=== PATIENT | male | born 1970 | race Two or more races ===

== ENCOUNTER 2020-02-07 07:22 | Emergency (ER) | payer MEDICAID ==
[~2020-02-07] VITALS: Ht 175.3 cm; Wt 77.6 kg
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
[2020-02-07 07:50] LABS: BASOPHILS % (AUTO) 0.8 % (0.0-2.0); HEMATOCRIT 45 % (39-51); HEMOGLOBIN 15.2 g/dL (13.5-17.5); LYMPHOCYTES # (AUTO) 1.5 /CMM (0.8-4.8); MEAN CORPUSCULAR HGB CONC 34 g/dl (31.0-36.0); MEAN CORPUSCULAR VOLUME 93 fL (80-96); MONOCYTES # (AUTO) 0.5 /CMM (0.1-1.30); MONOCYTES % (AUTO) 9.3 % (2.0-12.0); NEUTROPHILS # (AUTO) 2.8 /CMM (1.8-8.9); NEUTROPHILS % (AUTO) 54.9 % (43.0-81.0); PLATELET COUNT (AUTO) 160 /CMM (150-450); RED BLOOD CELL COUNT(AUTO) 4.88 MIL/uL (4.5-6.0); WHITE BLOOD COUNT (AUTO) 5.1 K/uL (4.3-11.0)
[2020-02-07 08:00] LABS: ALCOHOL, BLOOD < 3 mg/dL (0-0); CALCIUM, SERUM 8.5 mg/dL (8.5-10.1); CARBON DIOXIDE 22 mmol/L (21-32); CHLORIDE 101 mmol/L (98-107); CREATININE 0.8 mg/dL (0.6-1.3); GLUCOSE 110 mg/dL (74-106); POTASSIUM 3.6 mmol/L (3.5-5.1); SODIUM SERUM 138 mmol/L (136-145); UREA NITROGEN, BLOOD 5 mg/dL (7-18)
--- NOTE | 2020-02-07 08:00 | NUR ---
PATIENT CAME BACK FROM CT.
[2020-02-07 08:04] LABS: PHENYTOIN (DILANTIN) < 0.5 ug/ml (10.0-20.0)
[2020-02-07] MEDS ORDERED: LEVETIRACETAM (250 MG) 250 MG TABLET PO ONE ×2 (08:28→08:30)
--- NOTE | 2020-02-07 08:30 | NUR ---
FAXED NEW SEIZURE ACTIVITY TO [facility] [phone].
--- NOTE | 2020-02-07 08:35 | NUR ---
[place] traffic survey technician at bedside. Officer Geneva Badge#[id number]
--- NOTE | 2020-02-07 08:50 | NUR ---
PATIENT A/OX4, AMBULATORY, NO DISTRESS NOTED. IV removed. Catheter intact and site benign. Pressure and 4x4 applied to site. No bleeding noted.Patient discharged to home in stable condition. Written and verbal after care instructions given. Patient verbalizes understanding of instruction. Patient is waiting for his son to pick him up.
--- NOTE | 2020-02-07 09:16 | NUR ---
PATIENT DISCHARGED TO SON. PATIENT IN STABLE CONDITION.
[2020-02-07 09:17] VITALS: BP 140/74
== END 2020-02-07 09:18 | disposition home or self-care (01) ==
LOC: ER 07:27
DX: G40.909 Epilepsy, unspecified, not intractable, without status epilepticus (principal)
CPT/HCPCS: 36415; 70450-TC; 80048-TC; 80185-TC; 85025-TC; G0480